=== PATIENT | male | born 1960 | race African-American/Black ===

== ENCOUNTER 2019-09-10 10:26 | Inpatient (IN) | payer BC ==
[2019-09-10 10:42] VITALS: BMI 29.4
--- NOTE | 2019-09-10 11:17 | HP ---
COWS - Scale Resting Pulse: 2= [place] 101-120 Sweatin= Chills/Flushing Restless Observation: 1= Difficult to Sit Still Pupil Size: 1= Pupils >than Normal Bone or Joint Aches: 4=Acute Joint/Muscle Pain Runny Nose/ Eye Tearin= Nasal Congestion GI Upset > 30mins: 1= Stomach Cramp Tremor Observation: 1= Tremor [place], Not Seen Yawning Observation: 0= None Anxiety or Irritability: 1=Feels Anxious/Irritable Goose Flesh Skin: 0=Smooth Skin COWS Score: 13 CIWA Score - Admission Criteria OASAS Guidelines: Admission for Medically Managed Detox: Requires at least one of the followin. CIWA greater than 12 2. Seizures within the past 24 hours 3. Delirium tremens within the past 24 hours 4. Hallucinations within the past 24 hours 5. Acute intervention needed for co occurring medical disorder 6. Acute intervention needed for co occurring psychiatric disorder 7. Severe withdrawal that cannot be handled at a lower level of care (continued vomiting, continued diarrhea, abnormal vital signs) requiring intravenous medication and/or fluids 8. Admitting History and Physical - Admission Chief Complaint: "I want help and I want to help myself. I want to start the new year in a better position thatn I am in now." History of Present Illness: 58 year old male with history of opioid dependence with withdrawals and cocaine use disorder. He has never overdosed. He is using 5-6 bags of heroin daily, intransally, last used this AM He is using $100 daily, intranasally, last used yesterday. He does occasionally use marijuana, last smoked 2 drags yesterday. He also endorses using oral opioid pills when he can get them. He smokes ciggarettes sporadically. PMH: HTN on no meds Psur herniorrhaphies, inguinal. Psych: in [facility] due to hallucinations. Last time that occurred was in 2018. Not on any meds. No friends. He resides in [place]. He lives alone He denies any legal issues currently. He is currently though on probation due to drug possession. History Source: Patient Limitations to Obtaining History: No Limitations - Past Medical History Cardiovascular: Yes: HTN - Past Surgical History Additional Past Surgical History: Herniorrhaphies Inguinal B/L - Advance Directives Advance Directives: No: Living Will, Health Care Proxy, DNR - Smoking History Smoking history: Current some day smoker Have you smoked in the past 12 months: Yes Aproximately how many cigarettes per day: 5 (not daily) - Alcohol/Substance Use Hx Alcohol Use: No History of Substance Use: reports: Cocaine, Heroin, Marijuana Date of Last Use: 09/09/19 - Social History Usual Living Arrangement: Yes: Alone Do you think of yourself as: Straight/Heterosexual ADL: Independent 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 History of Recent Travel: No Admission ROS [facility] - [facility] Allergies/Adverse Reactions: Allergies Allergy/AdvReac Type Severity Reaction Status Date / Time No Known Allergies Allergy Verified 09/10/19 10:38 Exam Limitations: No Limitations - Ebola screening Have you traveled outside of the country in the last 21 days: No Have you had contact with anyone from an Ebola affected area: No Have you been sick,other than usual withdrawal symptoms: No Do you have a fever: No - Review of Systems Constitutional: Chills EENT: reports: No Symptoms Reported Respiratory: reports: No Symptoms reported Cardiac: reports: No Symptoms Reported GI: reports: Nausea, Abdominal cramping : reports: No Symptoms Reported Musculoskeletal: reports: Back Pain, Muscle Pain Integumentary: reports: No Symptoms Reported Neuro: reports: No Symptoms reported Endocrine: reports: No Symptoms Reported Hematology: reports: No Symptoms Reported Psychiatric: reports: Judgement Intact, Mood/Affect Appropiate, Orientated x3, Anxious Other Systems: Reviewed and Negative Patient History - Patient Medical History Hx Anemia: No Hx Asthma: No Hx Chronic Obstructive Pulmonary Disease (COPD): No Hx Cancer: No Hx Cardiac Disorders: No Hx Congestive Heart Failure: No Hx Hypertension: Yes Hx Hypercholesterolemia: No Hx Pacemaker: No HX Cerebrovascular Accident: No Hx Seizures: No Hx Dementia: No Hx Diabetes: No Hx Gastrointestinal Disorders: No Hx Liver Disease: No Hx Genitourinary Disorders: No Hx Sexually Transmitted Disorders: No Hx Renal Disease (ESRD): No Hx Thyroid Disease: No Hx Human Immunodeficiency Virus (HIV): No Hx Hepatitis C: No Hx Depression: No Hx Suicide Attempt: No Hx Bipolar Disorder: No - Patient Surgical History Past Surgical History: Yes Other Surgical History: bilateral Herniorrhaphies - PPD History Previous Implant?: Yes Documented Results: Negative w/o proof Implanted On Prior R Admission?: No Results: negative PPD to be Administered?: Yes - Smoking Cessation Smoking history: Current some day smoker Have you smoked in the past 12 months: Yes Aproximately how many cigarettes per day: 5 Hx Chewing Tobacco Use: No Initiated information on smoking cessation: Yes 'Breaking Loose' booklet given: 09/10/19 - Substances abused Heroin Substance route: Inhalation Frequency: Daily Amount used: 5 BAGS Age of first use: 51 Date of last use: 09/09/19 Cocaine Substance route: Smoking Frequency: Daily Amount used: $100 Age of first use: 29 Date of last use: 09/09/19 Admission Physical Exam [facility] - Vital Signs Vital Signs: Vital Signs - 24 hr 09/10/19 10:35 Temperature 99.1 F Pulse Rate 104 H Respiratory 18 Rate Blood Pressure 98/66 - Physical General Appearance: Yes: Mild Distress, Tremorous, Irritable, Sweating, Anxious HEENTM: Yes: EOMI, Hearing grossly Normal, Normal ENT Inspection, Normocephalic , Normal Voice, ALINA, Pharynx Normal, Tm's normal Respiratory: Yes: Chest Non-Tender, Lungs Clear, Normal Breath Sounds, No Respiratory Distress, No Accessory Muscle Use Neck: Yes: No masses,lesions,Nodules, Supple, Trachea in good position Breast: Yes: Within Normal Limits Cardiology: Yes: Regular Rhythm, Regular Rate, S1, S2, Murmur Abdominal: Yes: Normal Bowel Sounds, Non Tender, Soft, Protuberent Genitourinary: Yes: Within Normal Limits Back: Yes: Normal Inspection Musculoskeletal: Yes: full range of Motion, Gait Steady, Pelvis Stable Extremities: Yes: Normal Capillary Refill, Normal Inspection, Normal Range of Motion, Non-Tender, Other (varicose veins) Neurological: Yes: director process II-XII NML intact, Fully Oriented, Alert, Motor Strength 5/5, Normal Mood/Affect, Normal Response Integumentary: Yes: Normal Color, Warm Lymphatic: Yes: Within Normal Limits - Diagnostic (1) Opioid dependence with withdrawal Current Visit: Yes Status: Acute Cleared for Admission [facility] - Detox or Rehab [facility] Level of Care: Medically Managed Detox Regimen/Protocol: Methadone Screened but not Admitted - Documentation of Visit Screened but not Admitted: No Breathalyzer - Breathalyzer Breathalyzer: 0 Urine Drug Screen - Test Device Lot number: [id number] Expiration date: 04/16/21 - Control Is test valid?: Yes - Results Drug screen NEGATIVE: No Urine drug screen results: THC-Marijuana, ANH-Cocaine, MOP-Opiates, BZO- Benzodiazepines Inpatient Rehab Admission - Rehab Decision to Admit Inpatient rehab admission?: No
[2019-09-10] MEDS ORDERED: BISMUTH SUBSALICYLATE 524 MG/30 ML UD PO PRN (11:30)
[2019-09-10] MEDS ORDERED: MAGNESIUM CITRATE 300 ML BOTTLE PO PRN (11:30)
[2019-09-10] MEDS ORDERED: ACETAMINOPHEN 325 MG TABLET (FP) PO PRN ×2 (11:30)
[2019-09-10] MEDS ORDERED: MAG HYDROX/AL HYDROX/SIMETH 30 ML UNIT-DOSE CUP PO PRN (11:30)
[2019-09-10] MEDS ORDERED: METHOCARBAMOL 500 MG TABLET PO PRN (11:30)
[2019-09-10] MEDS ORDERED: hydrOXYzine PAMOATE 25 MG CAPSULE (FP) PO PRN (11:30)
[2019-09-10] MEDS ORDERED: IBUPROFEN 400 MG TABLET (FP) PO PRN (11:30)
[2019-09-10] MEDS ORDERED: MAGNESIUM HYDROX 2400MG/30ML ORAL SUSPENSION 30 ML CUP PO PRN (11:30)
[2019-09-10] MEDS ORDERED: MENTHOL/PHENOL 1 EACH UD MM PRN (11:30)
--- NOTE | 2019-09-10 12:35 | EKG ---
Test Reason : Blood Pressure : / mmHG Vent. Rate : 078 BPM Atrial Rate : 078 BPM P-R Int : 144 ms QRS Dur : 102 ms QT Int : 406 ms P-R-T Axes : 065 -52 -27 degrees QTc Int : 462 ms NORMAL SINUS RHYTHM LEFT ANTERIOR FASCICULAR BLOCK MODERATE VOLTAGE CRITERIA FOR LVH, MAY BE NORMAL VARIANT CANNOT RULE OUT SEPTAL INFARCT , AGE UNDETERMINED ABNORMAL ECG NO PREVIOUS ECGS AVAILABLE Confirmed by Jonnie Pascual ([id number]) on 09/10/2019 12:34:46 PM Referred By: Confirmed By:Jonnie Pascual
[2019-09-10] MEDS ORDERED: METHADONE HCL 10 MG TABLET (FOR DETOX USE ONLY) PO ONE (13:00)
[2019-09-10] MEDS: THIAMINE HCL 100 MG TABLET (FP) PO SCH (22:15)
[2019-09-10] MEDS: MINERAL OIL/PETROLAT/WATER TOPICAL CREAM 454 GM JAR TP PRN (22:16)
[2019-09-10] MEDS: MELATONIN 5 MG TABLETS PO PRN (22:16)
[2019-09-11] MEDS ORDERED: METHADONE HCL 10 MG TABLET (FOR DETOX USE ONLY) ONE (09:20)
[2019-09-11] MEDS ORDERED: METHADONE HCL 5 MG TABLET (FOR DETOX USE ONLY) ONE (09:20)
--- NOTE | 2019-09-11 09:51 | PN ---
BHS COWS - Scale Resting Pulse: 0= [place] 80 or Below Sweatin= Chills/Flushing Restless Observation: 1= Difficult to Sit Still Pupil Size: 0= Normal to Room Light Bone or Joint Aches: 2= Severe Diffuse Aches Runny Nose/ Eye Tearin= Runny Nose/Eyes GI Upset > 30mins: 0= None Tremor Observation of Outstretched Hands: 1= Tremor [place], Not Seen Yawning Observation: 1= 1-2x During Session Anxiety or Irritability: 2=Irritable/Anxious Goose Flesh Skin: 0=Smooth Skin COWS Score: 10 BHS Progress Note (SOAP) Subjective: sweats shakes interrupted sleep body aches tired Objective: 09/11/19 09:51 Vital Signs Temperature 97.9 F 09/11/19 09:14 Pulse Rate 79 09/11/19 09:14 Respiratory Rate 18 09/11/19 09:14 Blood Pressure 143/91 09/11/19 09:14 O2 Sat by Pulse Oximetry (%) labs pending aaox3 ambulating no acute distress Assessment: 09/11/19 09:52 withdrawals Plan: continue detox pending labs
[2019-09-11] MEDS ORDERED: METHADONE (DETOX) 20 MG, METHADONE (DETOX) 5 MG PO ONE (10:00)
[2019-09-11] MEDS: NICOTINE 7 MG/24 HOURS TOPICAL PATCH TD SCH (10:13)
[2019-09-11] MEDS: cloNIDine HCL 0.1 MG TABLET PO PRN (10:13)
[2019-09-11] MEDS: PRENATAL VITAMINS W/ FOLIC ACID TABLET (FP) PO SCH (10:13)
[2019-09-11 11:05] LABS: HEMATOCRIT 38.1 % (35.4-49); HEMOGLOBIN 12.9 GM/dL (11.7-16.9); MCH 30.4 pg (25.7-33.7); MCHC 33.7 g/dl (32.0-35.9); MEAN CELL VOLUME 90.3 fl (80-96); MEAN PLT VOLUME 8.4 fl (7.5-11.1); PLATELET COUNT 222 K/MM3 (134-434); RBC 4.22 M/mm3 (4.00-5.60); RDW 13.5 % (11.9-15.9); WHITE BLOOD COUNT 6.5 K/mm3 (4.0-10.0)
[2019-09-11 11:06] LABS: ALBUMIN 3.2 g/dl (3.4-5.0); BILIRUBIN,TOTAL 0.3 mg/dL (0.2-1); BLOOD UREA NITROGEN 14.4 mg/dL (7-18); CALCIUM 8.7 mg/dL (8.5-10.1); CREATININE 1.1 mg/dL (0.55-1.3); POTASSIUM 3.8 mmol/L (3.5-5.1); TOT PROT 5.6 g/dl (6.4-8.2)
[2019-09-11] MEDS: THIAMINE HCL 100 MG TABLET (FP) PO SCH (22:18)
[2019-09-11] MEDS: MINERAL OIL/PETROLAT/WATER TOPICAL CREAM 454 GM JAR TP PRN (22:49)
[2019-09-12] MEDS ORDERED: METHADONE HCL 10 MG TABLET (FOR DETOX USE ONLY) PO ONE (10:00)
[2019-09-12] MEDS: NICOTINE 7 MG/24 HOURS TOPICAL PATCH TD SCH (10:27)
[2019-09-12] MEDS: PRENATAL VITAMINS W/ FOLIC ACID TABLET (FP) PO SCH (10:27)
--- NOTE | 2019-09-12 11:33 | PN ---
S COWS - Scale Resting Pulse: 0= [place] 80 or Below Sweatin= Beads of Sweat on Face Restless Observation: 1= Difficult to Sit Still Pupil Size: 0= Normal to Room Light Bone or Joint Aches: 2= Severe Diffuse Aches Runny Nose/ Eye Tearin= None GI Upset > 30mins: 0= None Tremor Observation of Outstretched Hands: 0= None Yawning Observation: 1= 1-2x During Session Anxiety or Irritability: 2=Irritable/Anxious Goose Flesh Skin: 0=Smooth Skin COWS Score: 9 S Progress Note (SOAP) Subjective: c/o anxiety, sweats, and muscle aches. Objective: 09/12/19 11:32 Vital Signs 09/12/19 09/12/19 06:31 09:10 Temperature 98.6 F 97.7 F Pulse Rate 64 77 Respiratory 20 18 Rate Blood Pressure 142/81 121/72 Laboratory Last Values WBC 6.5 K/mm3 (4.0-10.0) 09/11/19 07:50 RBC 4.22 M/mm3 (4.00-5.60) 09/11/19 07:50 Hgb 12.9 GM/dL (11.7-16.9) 09/11/19 07:50 Hct 38.1 % (35.4-49) 09/11/19 07:50 MCV 90.3 fl (80-96) 09/11/19 07:50 MCH 30.4 pg (25.7-33.7) 09/11/19 07:50 MCHC 33.7 g/dl (32.0-35.9) 09/11/19 07:50 RDW 13.5 % (11.9-15.9) 09/11/19 07:50 Plt Count 222 K/MM3 (134-434) 09/11/19 07:50 MPV 8.4 fl (7.5-11.1) 09/11/19 07:50 Sodium 136 mmol/L (136-145) 09/11/19 07:50 Potassium 3.8 mmol/L (3.5-5.1) 09/11/19 07:50 Chloride 101 mmol/L (98-107) 09/11/19 07:50 Carbon Dioxide 30 mmol/L (21-32) 09/11/19 07:50 Anion Gap 5 MMOL/L (8-16) L 09/11/19 07:50 BUN 14.4 mg/dL (7-18) 09/11/19 07:50 Creatinine 1.1 mg/dL (0.55-1.3) 09/11/19 07:50 Est GFR (CKD-EPI)AfAm 84.71 09/11/19 07:50 Est GFR (CKD-EPI)NonAf 73.09 09/11/19 07:50 Random Glucose 87 mg/dL (74-106) 09/11/19 07:50 Calcium 8.7 mg/dL (8.5-10.1) 09/11/19 07:50 Total Bilirubin 0.3 mg/dL (0.2-1) 09/11/19 07:50 AST 13 U/L (15-37) L 09/11/19 07:50 ALT 20 U/L (13-61) 09/11/19 07:50 Alkaline Phosphatase 57 U/L (45-117) 09/11/19 07:50 Total Protein 5.6 g/dl (6.4-8.2) L 09/11/19 07:50 Albumin 3.2 g/dl (3.4-5.0) L 09/11/19 07:50 RPR Titer Nonreactive (NONREACTIVE) 09/11/19 07:50 Labs noted. Assessment: 09/12/19 11:33 AOX3, in no respiratory distress. Full ROM, ambulating in the unit. Mild Withdrawal symptoms. Plan: continue detox.
[2019-09-12] MEDS: cloNIDine HCL 0.1 MG TABLET PO PRN (22:16)
[2019-09-12] MEDS: MELATONIN 5 MG TABLETS PO PRN (22:16)
[2019-09-12] MEDS: THIAMINE HCL 100 MG TABLET (FP) PO SCH (22:16)
[2019-09-12] MEDS: MINERAL OIL/PETROLAT/WATER TOPICAL CREAM 454 GM JAR TP PRN (22:17)
[2019-09-13] MEDS ORDERED: METHADONE HCL 10 MG TABLET (FOR DETOX USE ONLY) ONE (09:08)
[2019-09-13] MEDS ORDERED: METHADONE HCL 5 MG TABLET (FOR DETOX USE ONLY) ONE (09:08)
--- NOTE | 2019-09-13 09:18 | PN ---
BHS COWS - Scale Resting Pulse: 0= [place] 80 or Below Sweatin= Chills/Flushing Restless Observation: 1= Difficult to Sit Still Pupil Size: 0= Normal to Room Light Bone or Joint Aches: 1= Mild Discomfort Runny Nose/ Eye Tearin= Nasal Congestion GI Upset > 30mins: 0= None Tremor Observation of Outstretched Hands: 1= Tremor [place], Not Seen Yawning Observation: 1= 1-2x During Session Anxiety or Irritability: 1=Feels Anxious/Irritable Goose Flesh Skin: 0=Smooth Skin COWS Score: 7 BHS Progress Note (SOAP) Subjective: irritable agitation interrupted sleep Objective: 09/13/19 09:18 Vital Signs Temperature 97.9 F 09/13/19 09:10 Pulse Rate 71 09/13/19 09:10 Respiratory Rate 16 09/13/19 09:10 Blood Pressure 145/73 09/13/19 09:10 O2 Sat by Pulse Oximetry (%) Laboratory Tests 09/11/19 09/11/19 09/11/19 07:50 07:50 07:50 WBC 6.5 RBC 4.22 Hgb 12.9 Hct 38.1 MCV 90.3 MCH 30.4 MCHC 33.7 RDW 13.5 Plt Count 222 MPV 8.4 Sodium 136 Potassium 3.8 Chloride 101 Carbon Dioxide 30 Anion Gap 5 L BUN 14.4 Creatinine 1.1 Est GFR (CKD-EPI)AfAm 84.71 Est GFR (CKD-EPI)NonAf 73.09 Random Glucose 87 Calcium 8.7 Total Bilirubin 0.3 AST 13 L ALT 20 Alkaline Phosphatase 57 Total Protein 5.6 L Albumin 3.2 L RPR Titer Nonreactive aaox3 ambulating no acute distress Assessment: 09/13/19 09:18 withdrawals Plan: continue detox
[2019-09-13] MEDS ORDERED: METHADONE (DETOX) 10 MG, METHADONE (DETOX) 5 MG PO ONE (10:00)
[2019-09-13] MEDS: NICOTINE 7 MG/24 HOURS TOPICAL PATCH TD SCH (10:13)
[2019-09-13] MEDS: PRENATAL VITAMINS W/ FOLIC ACID TABLET (FP) PO SCH (10:13)
[2019-09-13] MEDS: THIAMINE HCL 100 MG TABLET (FP) PO SCH (21:08)
[2019-09-13] MEDS: MELATONIN 5 MG TABLETS PO PRN (21:08)
[2019-09-14] MEDS ORDERED: METHADONE HCL 10 MG TABLET (FOR DETOX USE ONLY) PO ONE (10:00)
[2019-09-14] MEDS: NICOTINE 7 MG/24 HOURS TOPICAL PATCH TD SCH (10:10)
[2019-09-14] MEDS: PRENATAL VITAMINS W/ FOLIC ACID TABLET (FP) PO SCH (10:10)
--- NOTE | 2019-09-14 13:38 | PN ---
BHS COWS - Scale Resting Pulse: 0= [place] 80 or Below Sweatin= No chills or Flushing Restless Observation: 1= Difficult to Sit Still Pupil Size: 0= Normal to Room Light Bone or Joint Aches: 0= None Runny Nose/ Eye Tearin= None GI Upset > 30mins: 0= None Tremor Observation of Outstretched Hands: 0= None Yawning Observation: 0= None Anxiety or Irritability: 0= None Goose Flesh Skin: 0=Smooth Skin COWS Score: 1 BHS Progress Note (SOAP) Subjective: Patient denies current Withdrawal / Detox symptoms and reports that he feels well overall at this time. Objective: PATIENT A & O X 3, OBSERVED AMBULATING ON DETOX UNIT UNASSISTED. IN NO ACUTE DISTRESS. 09/14/19 13:37 Vital Signs Temperature 97.5 F L 09/14/19 13:17 Pulse Rate 69 09/14/19 13:17 Respiratory Rate 16 09/14/19 13:17 Blood Pressure 142/81 09/14/19 13:17 O2 Sat by Pulse Oximetry (%) Laboratory Tests 09/11/19 09/11/19 09/11/19 07:50 07:50 07:50 WBC 6.5 RBC 4.22 Hgb 12.9 Hct 38.1 MCV 90.3 MCH 30.4 MCHC 33.7 RDW 13.5 Plt Count 222 MPV 8.4 Sodium 136 Potassium 3.8 Chloride 101 Carbon Dioxide 30 Anion Gap 5 L BUN 14.4 Creatinine 1.1 Est GFR (CKD-EPI)AfAm 84.71 Est GFR (CKD-EPI)NonAf 73.09 Random Glucose 87 Calcium 8.7 Total Bilirubin 0.3 AST 13 L ALT 20 Alkaline Phosphatase 57 Total Protein 5.6 L Albumin 3.2 L RPR Titer Nonreactive LABS NOTED. Assessment: 09/14/19 13:38 WITHDRAWAL SYMPTOMS. Plan: CONTINUE DETOX. PATIENT SCHEDULED FOR D/C FROM DETOX UNIT TOMORROW.
[2019-09-14] MEDS: THIAMINE HCL 100 MG TABLET (FP) PO SCH (22:11)
[2019-09-14] MEDS: MELATONIN 5 MG TABLETS PO PRN (22:12)
[2019-09-15] MEDS ORDERED: METHADONE HCL 5 MG TABLET (FOR DETOX USE ONLY) PO ONE (06:00)
[2019-09-15 06:21] VITALS: BP 132/58; PULSE 63; TEMP 98
--- NOTE | 2019-09-15 16:57 | DS ---
[facility] Detox Discharge Summary Admission Date: 09/10/19 Discharge Date: 09/15/19 - History Present History: Cocaine Dependence, Opioid Dependence Additional Comments: Patient completed detox successfully and discharged safely. Instructed to follow up with PCP within 1-2 weeks. Pertinent Past History: HTN - Physical Exam Results Vital Signs: Vital Signs Temperature 98.0 F 09/15/19 06:20 Pulse Rate 63 09/15/19 06:20 Respiratory Rate 18 09/15/19 06:20 Blood Pressure 132/58 L 09/15/19 06:20 O2 Sat by Pulse Oximetry (%) Pertinent Admission Physical Exam Findings: Withdrawal sxs Laboratory Tests 09/11/19 09/11/19 09/11/19 07:50 07:50 07:50 WBC 6.5 RBC 4.22 Hgb 12.9 Hct 38.1 MCV 90.3 MCH 30.4 MCHC 33.7 RDW 13.5 Plt Count 222 MPV 8.4 Sodium 136 Potassium 3.8 Chloride 101 Carbon Dioxide 30 Anion Gap 5 L BUN 14.4 Creatinine 1.1 Est GFR (CKD-EPI)AfAm 84.71 Est GFR (CKD-EPI)NonAf 73.09 Random Glucose 87 Calcium 8.7 Total Bilirubin 0.3 AST 13 L ALT 20 Alkaline Phosphatase 57 Total Protein 5.6 L Albumin 3.2 L RPR Titer Nonreactive Labs reviewed - Treatment Hospital Course: Detox Protocol Followed, Detoxed Safely, Responded well, Discharged Condition Good - Medication Discharge Medications: Ambulatory Orders NK [No Known Home Medication] 09/10/19 - Diagnosis (1) Cocaine dependence Status: Acute (2) HTN (hypertension), benign Status: Chronic (3) Nicotine dependence Status: Chronic (4) Opioid dependence with withdrawal Status: Acute - AMA Did Patient Leave Against Medical Advice: No (Follow up with PCP within 1-2 weeks)
== END 2019-09-15 08:40 | disposition home or self-care (01) | DRG 773 ==
LOC: YASAS 10:26 → Y6N 11:59
PROVIDERS: ADMIT Allergy & Immunology; ATTEND Allergy & Immunology
PROC: HZ2ZZZZ Detoxification Services for Substance Abuse Treatment (ICD-10-PCS; principal; 2019-09-10)
DX: F11.23 Opioid dependence with withdrawal (principal); F14.20 Cocaine dependence, uncomplicated; F17.210 Nicotine dependence, cigarettes, uncomplicated; I10 Essential (primary) hypertension; R01.1 Cardiac murmur, unspecified
CPT/HCPCS: 36415; 80053; 85027; 86593; 93005; 93010; J0735

== ENCOUNTER 2019-10-04 13:58 | Inpatient (IN) | payer BC ==
[2019-10-04 16:44] VITALS: BMI 29.8
--- NOTE | 2019-10-04 17:58 | HP ---
COWS - Scale Resting Pulse: 0= [place] 80 or Below Sweatin= Chills/Flushing Restless Observation: 0= Sits Still Pupil Size: 0= Normal to Room Light Bone or Joint Aches: 1= Mild Discomfort Runny Nose/ Eye Tearin= None GI Upset > 30mins: 2= Nausea/Diarrhea Tremor Observation: 0= None Yawning Observation: 1= 1-2x During Session Anxiety or Irritability: 1=Feels Anxious/Irritable Goose Flesh Skin: 0=Smooth Skin COWS Score: 6 CIWA Score - Admission Criteria OASAS Guidelines: Admission for Medically Managed Detox: Requires at least one of the followin. CIWA greater than 12 2. Seizures within the past 24 hours 3. Delirium tremens within the past 24 hours 4. Hallucinations within the past 24 hours 5. Acute intervention needed for co occurring medical disorder 6. Acute intervention needed for co occurring psychiatric disorder 7. Severe withdrawal that cannot be handled at a lower level of care (continued vomiting, continued diarrhea, abnormal vital signs) requiring intravenous medication and/or fluids 8. Admitting History and Physical - Admission Chief Complaint: here for detox from heroin History of Present Illness: 58 yo M Hx of HTN, bipolar , polysubstance use presents to [facility] for detox from heroin and crack cocaine. pt denies hx of overdose Heroin : 10 bags daily x 5 years , last used today 1130 am Crack cocaine : $200-300 daily x 5 years last used 7 am today 5-6 cigarettes daily Lives in house in [place], has family/ friends support. 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 History of Recent Travel: No Admission ROS [facility] - HPI Chief Complaint: here for detox from crack cocaine and heroin Allergies/Adverse Reactions: Allergies Allergy/AdvReac Type Severity Reaction Status Date / Time No Known Allergies Allergy Verified 10/04/19 16:40 - Ebola screening Have you traveled outside of the country in the last 21 days: No Have you had contact with anyone from an Ebola affected area: No Do you have a fever: No Patient History - Patient Medical History Hx Anemia: No Hx Asthma: No Hx Chronic Obstructive Pulmonary Disease (COPD): No Hx Cancer: No Hx Cardiac Disorders: No Hx Congestive Heart Failure: No Hx Hypertension: Yes Hx Hypercholesterolemia: No Hx Pacemaker: No HX Cerebrovascular Accident: No Hx Seizures: No Hx Dementia: No Hx Diabetes: No Hx Gastrointestinal Disorders: No Hx Liver Disease: No Hx Genitourinary Disorders: No Hx Sexually Transmitted Disorders: No Hx Renal Disease (ESRD): No Hx Thyroid Disease: No Hx Human Immunodeficiency Virus (HIV): No Hx Hepatitis C: No Hx Depression: Yes Hx Suicide Attempt: No Hx Bipolar Disorder: No Hx Schizophrenia: No - Patient Surgical History Past Surgical History: Yes Hx Neurologic Surgery: No Hx Cataract Extraction: No Hx Cardiac Surgery: No Hx Lung Surgery: No Hx Breast Surgery: No Hx Breast Biopsy: No Hx Abdominal Surgery: No Hx Appendectomy: No Hx Cholecystectomy: No Hx Genitourinary Surgery: No Hx Section: No Hx Orthopedic Surgery: No Other Surgical History: bilateral Herniorrhaphies Anesthesia Reaction: Yes - PPD History Date: 09/12/19 Results: negative - Smoking Cessation Smoking history: Current some day smoker Have you smoked in the past 12 months: Yes Aproximately how many cigarettes per day: 5 Hx Chewing Tobacco Use: No Initiated information on smoking cessation: Yes 'Breaking Loose' booklet given: 10/04/19 - Substances abused Heroin Substance route: Inhalation Frequency: Daily Amount used: 10bags Age of first use: 23 Date of last use: 10/04/19 Crack Substance route: Smoking Frequency: 3-6 times per week Amount used: $200 Age of first use: 24 Date of last use: 10/03/19 Admission Physical Exam BHS - Vital Signs Vital Signs: Vital Signs - 24 hr 10/04/19 16:40 Temperature 97.7 F Pulse Rate 75 Respiratory 20 Rate Blood Pressure 153/87 - Physical General Appearance: Yes: No Apparent Distress, Nourished HEENTM: Yes: EOMI, Hearing grossly Normal, Normal Voice, ALINA Respiratory: Yes: Lungs Clear, Normal Breath Sounds, No Accessory Muscle Use. No: Crackles, Wheezing Neck: Yes: No masses,lesions,Nodules Cardiology: Yes: Within Normal Limits, Regular Rhythm, Regular Rate, S1, S2. No : Edema, JVD, Murmur Abdominal: Yes: Normal Bowel Sounds, Non Tender, Soft. No: Distended Back: No: CVA Tenderness Extremities: Yes: Other (varicose veins b/l). 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 intact, Fully Oriented Integumentary: Yes: Normal Color, Dry, Warm - Diagnostic (1) Heroin abuse Status: Deleted (2) Heroin addiction Status: Deleted (3) Cocaine dependence Status: Acute Qualifiers: Substance use status: uncomplicated Qualified Code(s): F14.20 - Cocaine dependence, uncomplicated (4) HTN (hypertension), benign Status: Chronic (5) Nicotine dependence Status: Chronic Qualifiers: Nicotine product type: cigarettes Substance use status: uncomplicated Qualified Code(s): F17.210 - Nicotine dependence, cigarettes, uncomplicated Breathalyzer - Breathalyzer Breathalyzer: 0 Urine Drug Screen - Test Device Lot number: [id number] Expiration date: 04/17/21 - Control Is test valid?: Yes - Results Drug screen NEGATIVE: No Urine drug screen results: THC-Marijuana, ANH-Cocaine, FEN-Fentanyl, MOP-Opiates Inpatient Rehab Admission - Rehab Decision to Admit Inpatient rehab admission?: No
[2019-10-04] MEDS ORDERED: hydrOXYzine PAMOATE 25 MG CAPSULE (FP) PO PRN (18:26)
[2019-10-04] MEDS ORDERED: MAGNESIUM CITRATE 300 ML BOTTLE PO PRN (18:26)
[2019-10-04] MEDS ORDERED: MAG HYDROX/AL HYDROX/SIMETH 30 ML UNIT-DOSE CUP PO PRN (18:26)
[2019-10-04] MEDS ORDERED: IBUPROFEN 400 MG TABLET (FP) PO PRN (18:26)
[2019-10-04] MEDS ORDERED: METHOCARBAMOL 500 MG TABLET PO PRN (18:26)
[2019-10-04] MEDS ORDERED: MENTHOL/PHENOL 1 EACH UD MM PRN (18:26)
[2019-10-04] MEDS ORDERED: ACETAMINOPHEN 325 MG TABLET (FP) PO PRN ×2 (18:26)
[2019-10-04] MEDS ORDERED: MAGNESIUM HYDROX 2400MG/30ML ORAL SUSPENSION 30 ML CUP PO PRN (18:26)
[2019-10-04] MEDS ORDERED: BISMUTH SUBSALICYLATE 524 MG/30 ML UD PO PRN (18:26)
--- NOTE | 2019-10-04 18:55 | PN ---
Teaching Attending Note Name of Resident: Danii Irwin ATTENDING PHYSICIAN STATEMENT I saw and evaluated the patient. I reviewed the resident's note and discussed the case with the resident. I agree with the resident's findings and plan as documented. SUBJECTIVE: 58 yo M here requesting detox from heroin and crack cocaine. pt denies hx of overdose PHx HTN, bipolar d/o , Heroin : 10 bags daily x 5 years , last used today 1130 am Crack cocaine : $200-300 daily x 5 years last used 7 am today tobacco : 5-6 cigarettes daily PSH: 2 inguinal hernia surgeries in 1980s ALLERGIES: NKDA Meds: None OBJECTIVE: wnwd , irritable Vital Signs - 24 hr 10/04/19 16:40 Temperature 97.7 F Pulse Rate 75 Respiratory 20 Rate Blood Pressure 153/87 ASSESSMENT AND PLAN: OUD w/ intoxication
[2019-10-04] MEDS: cloNIDine HCL 0.1 MG TABLET PO PRN (19:03)
[2019-10-04] MEDS: THIAMINE HCL 100 MG TABLET (FP) PO SCH (22:09)
[2019-10-04] MEDS: MELATONIN 5 MG TABLETS PO PRN (22:10)
[2019-10-05] MEDS: NICOTINE 7 MG/24 HOURS TOPICAL PATCH TD SCH (10:14)
[2019-10-05] MEDS: PRENATAL VITAMINS W/ FOLIC ACID TABLET (FP) PO SCH (10:14)
[2019-10-05] MEDS ORDERED: METHADONE HCL 10 MG TABLET (FOR DETOX USE ONLY) PO ONE (10:30)
--- NOTE | 2019-10-05 14:24 | PN ---
BHS COWS - Scale Resting Pulse: 0= [place] 80 or Below Sweatin= Chills/Flushing Restless Observation: 1= Difficult to Sit Still Pupil Size: 0= Normal to Room Light Bone or Joint Aches: 2= Severe Diffuse Aches Runny Nose/ Eye Tearin= None GI Upset > 30mins: 0= None Tremor Observation of Outstretched Hands: 0= None Yawning Observation: 1= 1-2x During Session Anxiety or Irritability: 2=Irritable/Anxious Goose Flesh Skin: 0=Smooth Skin COWS Score: 7 BHS Progress Note (SOAP) Subjective: Anxious, Body Aches, Fatigue, Sweating. Objective: PATIENT A & O X 3. IN NO ACUTE DISTRESS. 10/05/19 14:25 Vital Signs Temperature 97.9 F 10/05/19 09:15 Pulse Rate 75 10/05/19 09:15 Respiratory Rate 16 10/05/19 09:15 Blood Pressure 142/66 10/05/19 09:15 O2 Sat by Pulse Oximetry (%) RESULTS OF LABS DRAWN FROM ADMISSION ON 09/11/2019 NOTED. 10/05/19 14:26 Assessment: 10/05/19 14:26 WITHDRAWAL SYMPTOMS. HYPERTENSION. 10/05/19 14:28 Plan: CONTINUE DETOX. CONTINUE MONITOR BLOOD PRESSURE. AMLODIPINE, 5 MG DAILY ORDERED FOR ELEVATED BLOOD PRESSURE. (HISTORY OF HYPERTENSION NOTED BY PATIENT ON DETOX ADMISSION REPORT; HOWEVER, NO ANTI-HYPERTENSIVE MEDICATIONS NOTED IN HOME MEDICATION LIST) .
[2019-10-05] MEDS: amLODIPine BESYLATE 5 MG TABLET (FP) PO SCH (15:10)
[2019-10-05] MEDS: MELATONIN 5 MG TABLETS PO PRN (22:10)
[2019-10-05] MEDS: THIAMINE HCL 100 MG TABLET (FP) PO SCH (22:10)
--- NOTE | 2019-10-06 08:57 | CONSULT ---
[facility] Psychiatric Consult - Data Date of interview: 10/06/19 Admission source: [facility] Identifying data: Patient is a 58 year old single male, father of one, unemployed, domiciled, and is supported by [facility]. THis is one of multiple admissions for patient. Patient admitted to for opiate dependence. Substance Abuse History: - Smoking Cessation. Smoking history: Current some day smoker. Have you smoked in the past 12 months: Yes. Aproximately how many cigarettes per day: 5. Hx Chewing Tobacco Use: No. - Substances abused. Heroin. Substance route: Inhalation. Frequency: Daily. Amount used: 10bags. Age of first use: 23. Date of last use: 10/04/19. Crack. Substance route: Smoking. Frequency: 3-6 times per week. Amount used: $200. Age of first use: 24. Date of last use: 10/03/19 Medical History: bilateral Herniorrhaphies, hypertension Psychiatric History: Patient denies history of psychiatric hospitalization and suicide attempt. Mr. Lin reports seeing a psychiatrist one time last year in [place], [place] to address his history of anxiety and insomnia. States that he was prescribed medications but is unable to recall the name of the medications. At present Mr. Lin reports difficulty sleeping. Physical/Sexual Abuse/Trauma History: denies. Mental Status Exam - Mental Status Exam Alert and Oriented to: Time, Place, Person Cognitive Function: Good Patient Appearance: Well Groomed Mood: Withdrawn Affect: Mood Congruent Patient Behavior: Fatigued Speech Pattern: Clear Voice Loudness: Normal Thought Process: Intact, Goal Oriented Thought Disorder: Not Present Hallucinations: Denies Suicidal Ideation: Denies Homicidal Ideation: Denies Insight/Judgement: Poor Sleep: Poorly Appetite: Fair Muscle strength/Tone: Normal Gait/Station: Normal Psychiatric Findings - Problem List ([place] 1, 2,3) (1) Substance induced mood disorder Current Visit: No Status: Chronic (2) Heroin abuse Current Visit: Yes Status: Acute (3) Cocaine dependence Current Visit: No Status: Acute (4) Opioid dependence with withdrawal Current Visit: No Status: Acute (5) Nicotine dependence Current Visit: No Status: Chronic (6) Substance-induced sleep disorder Current Visit: Yes Status: Acute - Initial Treatment Plan Initial Treatment Plan: Psychoeducation provided. Detoxification in progress. Will order Melatonin 10mg HS. Benefits and side effects discussed. Verbal consent given.
[2019-10-06] MEDS ORDERED: METHADONE HCL 10 MG TABLET (FOR DETOX USE ONLY) ONE (09:22)
[2019-10-06] MEDS ORDERED: METHADONE HCL 5 MG TABLET (FOR DETOX USE ONLY) ONE (09:22)
[2019-10-06] MEDS ORDERED: METHADONE (DETOX) 20 MG, METHADONE (DETOX) 5 MG PO ONE (10:00)
[2019-10-06] MEDS: PRENATAL VITAMINS W/ FOLIC ACID TABLET (FP) PO SCH (10:54)
[2019-10-06] MEDS: amLODIPine BESYLATE 5 MG TABLET (FP) PO SCH (10:54)
[2019-10-06] MEDS: NICOTINE 7 MG/24 HOURS TOPICAL PATCH TD SCH (10:54)
--- NOTE | 2019-10-06 12:46 | PN ---
[facility] COWS - Scale Resting Pulse: 0= [place] 80 or Below Sweatin= Chills/Flushing Restless Observation: 1= Difficult to Sit Still Pupil Size: 0= Normal to Room Light Bone or Joint Aches: 1= Mild Discomfort Runny Nose/ Eye Tearin= None GI Upset > 30mins: 0= None Tremor Observation of Outstretched Hands: 0= None Yawning Observation: 0= None Anxiety or Irritability: 0= None Goose Flesh Skin: 0=Smooth Skin COWS Score: 3 [facility] Progress Note (SOAP) Subjective: irritable sweats Objective: 10/06/19 12:46 Vital Signs Temperature 97.9 F 10/06/19 09:26 Pulse Rate 72 10/06/19 09:26 Respiratory Rate 18 10/06/19 09:26 Blood Pressure 150/95 10/06/19 09:26 O2 Sat by Pulse Oximetry (%) aaox3 ambulating no acute distress Assessment: 10/06/19 12:47 mild withdrawals Plan: continue detox
[2019-10-06] MEDS: THIAMINE HCL 100 MG TABLET (FP) PO SCH (22:13)
[2019-10-06] MEDS: MELATONIN 5 MG TABLETS PO PRN (22:14)
[2019-10-07] MEDS ORDERED: METHADONE HCL 10 MG TABLET (FOR DETOX USE ONLY) PO ONE (10:00)
--- NOTE | 2019-10-07 10:12 | PN ---
[facility] COWS - Scale Resting Pulse: 0= [place] 80 or Below Sweatin= Chills/Flushing Restless Observation: 1= Difficult to Sit Still Pupil Size: 0= Normal to Room Light Bone or Joint Aches: 1= Mild Discomfort Runny Nose/ Eye Tearin= Nasal Congestion GI Upset > 30mins: 2= Nausea/Diarrhea Tremor Observation of Outstretched Hands: 0= None Yawning Observation: 1= 1-2x During Session Anxiety or Irritability: 1=Feels Anxious/Irritable Goose Flesh Skin: 0=Smooth Skin COWS Score: 8 [facility] Progress Note (SOAP) Subjective: c/o of abdominal cramps, diarrhea, flatulence, interrupted sleep Objective: 10/07/19 10:10 Vital Signs Temperature 97.5 F L 10/07/19 09:42 Pulse Rate 69 10/07/19 09:42 Respiratory Rate 17 10/07/19 09:42 Blood Pressure 127/58 L 10/07/19 09:42 O2 Sat by Pulse Oximetry (%) Assessment: 10/07/19 12:00 Patient AOx3 no acute distress EENT WNL No abdominal tenderness withdrawal sx Plan: increase fluids continue detox continue to monitor
[2019-10-07] MEDS: PRENATAL VITAMINS W/ FOLIC ACID TABLET (FP) PO SCH (10:52)
[2019-10-07] MEDS: amLODIPine BESYLATE 5 MG TABLET (FP) PO SCH (10:52)
[2019-10-07] MEDS: NICOTINE 7 MG/24 HOURS TOPICAL PATCH TD SCH (10:53)
[2019-10-07] MEDS: THIAMINE HCL 100 MG TABLET (FP) PO SCH (21:18)
[2019-10-07] MEDS: MELATONIN 5 MG TABLETS PO PRN (21:18)
[2019-10-08] MEDS ORDERED: METHADONE HCL 5 MG TABLET (FOR DETOX USE ONLY) ONE (09:08)
[2019-10-08] MEDS ORDERED: METHADONE HCL 10 MG TABLET (FOR DETOX USE ONLY) ONE (09:09)
--- NOTE | 2019-10-08 09:32 | PN ---
[facility] COWS - Scale Resting Pulse: 1= [place] 81-100 Sweatin= Chills/Flushing Restless Observation: 1= Difficult to Sit Still Pupil Size: 0= Normal to Room Light Bone or Joint Aches: 2= Severe Diffuse Aches Runny Nose/ Eye Tearin= Nasal Congestion GI Upset > 30mins: 0= None Tremor Observation of Outstretched Hands: 0= None Yawning Observation: 0= None Anxiety or Irritability: 1=Feels Anxious/Irritable Goose Flesh Skin: 0=Smooth Skin COWS Score: 7 [facility] Progress Note (SOAP) Subjective: feeling better anxiety restless Objective: 10/08/19 09:32 Vital Signs Temperature 97.7 F 10/08/19 09:24 Pulse Rate 96 H 10/08/19 09:24 Respiratory Rate 20 10/08/19 09:24 Blood Pressure 138/73 10/08/19 09:24 O2 Sat by Pulse Oximetry (%) aaox3 ambulating no acute distress Assessment: 10/08/19 09:32 withdrawals Plan: continue detox
[2019-10-08] MEDS ORDERED: METHADONE (DETOX) 10 MG, METHADONE (DETOX) 5 MG PO ONE (10:00)
[2019-10-08] MEDS: amLODIPine BESYLATE 5 MG TABLET (FP) PO SCH (10:14)
[2019-10-08] MEDS: NICOTINE 7 MG/24 HOURS TOPICAL PATCH TD SCH (10:14)
[2019-10-08] MEDS: PRENATAL VITAMINS W/ FOLIC ACID TABLET (FP) PO SCH (10:15)
[2019-10-08] MEDS: cloNIDine HCL 0.1 MG TABLET PO PRN (22:13)
[2019-10-08] MEDS: THIAMINE HCL 100 MG TABLET (FP) PO SCH (22:13)
[2019-10-08] MEDS: MELATONIN 5 MG TABLETS PO PRN (22:14)
[2019-10-09] MEDS ORDERED: METHADONE HCL 10 MG TABLET (FOR DETOX USE ONLY) PO ONE (10:00)
[2019-10-09] MEDS: NICOTINE 7 MG/24 HOURS TOPICAL PATCH TD SCH (10:43)
[2019-10-09] MEDS: PRENATAL VITAMINS W/ FOLIC ACID TABLET (FP) PO SCH (10:43)
[2019-10-09] MEDS: amLODIPine BESYLATE 5 MG TABLET (FP) PO SCH (10:43)
--- NOTE | 2019-10-09 11:41 | PN ---
[facility] COWS - Scale Resting Pulse: 0= [place] 80 or Below Sweatin= No chills or Flushing Restless Observation: 1= Difficult to Sit Still Pupil Size: 0= Normal to Room Light Bone or Joint Aches: 1= Mild Discomfort Runny Nose/ Eye Tearin= None GI Upset > 30mins: 0= None Tremor Observation of Outstretched Hands: 0= None Yawning Observation: 1= 1-2x During Session Anxiety or Irritability: 1=Feels Anxious/Irritable Goose Flesh Skin: 0=Smooth Skin COWS Score: 4 [facility] Progress Note (SOAP) Subjective: insomnia melatonin not helping Objective: 10/09/19 11:39 Vital Signs Temperature 98.1 F 10/09/19 09:10 Pulse Rate 67 10/09/19 09:10 Respiratory Rate 18 10/09/19 09:10 Blood Pressure 139/75 10/09/19 09:10 O2 Sat by Pulse Oximetry (%) aaox3 ambulating no acute distress Assessment: 10/09/19 11:40 mild withdrawal sx Plan: trazadone 50mg x one tonight melatonin d/c d/c in am
[2019-10-09] MEDS ORDERED: CYCLOBENZAPRINE HCL 5 MG TABLET PO SCH (14:00)
[2019-10-09] MEDS: THIAMINE HCL 100 MG TABLET (FP) PO SCH (21:19)
[2019-10-09] MEDS ORDERED: traZODone HCL 50 MG TABLET (FP) PO ONE (22:00)
[2019-10-10] MEDS ORDERED: METHADONE HCL 5 MG TABLET (FOR DETOX USE ONLY) PO ONE (06:00)
[2019-10-10 06:26] VITALS: BP 144/94; PULSE 65; TEMP 97.5
--- NOTE | 2019-10-10 08:40 | DS ---
[facility] Detox Discharge Summary Admission Date: 10/04/19 Discharge Date: 10/10/19 - History Present History: Cocaine Dependence, Opioid Dependence - Physical Exam Results Vital Signs: Vital Signs Temperature 97.5 F L 10/10/19 06:25 Pulse Rate 65 10/10/19 06:25 Respiratory Rate 18 10/10/19 06:25 Blood Pressure 144/94 10/10/19 06:25 O2 Sat by Pulse Oximetry (%) Pertinent Admission Physical Exam Findings: Vital Signs Temperature 97.5 F L 10/10/19 06:25 Pulse Rate 65 10/10/19 06:25 Respiratory Rate 18 10/10/19 06:25 Blood Pressure 144/94 10/10/19 06:25 O2 Sat by Pulse Oximetry (%) aaox3 ambulating no acute distress - Treatment Hospital Course: Detox Protocol Followed, Detoxed Safely, Responded well, Discharged Condition Good, Rehab Referral Accepted - Medication Discharge Medications: Ambulatory Orders NK [No Known Home Medication] 09/10/19 - Diagnosis (1) Substance-induced sleep disorder Current Visit: Yes Status: Acute (2) HTN (hypertension), benign Current Visit: Yes Status: Chronic (3) Cocaine dependence Current Visit: No Status: Acute Qualifiers: Substance use status: uncomplicated Qualified Code(s): F14.20 - Cocaine dependence, uncomplicated (4) Opioid dependence with withdrawal Current Visit: Yes Status: Chronic (5) Nicotine dependence Current Visit: Yes Status: Chronic Qualifiers: Nicotine product type: cigarettes Substance use status: uncomplicated Qualified Code(s): F17.210 - Nicotine dependence, cigarettes, uncomplicated (6) Substance induced mood disorder Current Visit: No Status: Chronic - AMA Did Patient Leave Against Medical Advice: No
== END 2019-10-10 08:50 | disposition home or self-care (01) | DRG 773 ==
LOC: YASAS 13:58 → Y6N 18:38
PROVIDERS: ADMIT Allergy & Immunology; ATTEND Allergy & Immunology
PROC: HZ2ZZZZ Detoxification Services for Substance Abuse Treatment (ICD-10-PCS; principal; 2019-10-04)
DX: F11.23 Opioid dependence with withdrawal (principal); F14.20 Cocaine dependence, uncomplicated; F17.210 Nicotine dependence, cigarettes, uncomplicated; F19.282 Other psychoactive substance dependence with psychoactive substance-induced sleep disorder; F19.24 Other psychoactive substance dependence with psychoactive substance-induced mood disorder; F31.9 Bipolar disorder, unspecified; I10 Essential (primary) hypertension
CPT/HCPCS: J0735

== ENCOUNTER 2021-06-09 10:36 | Inpatient (IN) | payer BC ==
[2021-06-09 12:28] VITALS: BMI 23.9
[2021-06-09] MEDS ORDERED: ACETAMINOPHEN 325 MG TABLET (FP) PO PRN ×2 (17:40)
[2021-06-09] MEDS ORDERED: ONDANSETRON *ODT* 4 MG TABLET SL PRN (17:40)
[2021-06-09] MEDS ORDERED: MAGNESIUM HYDROX 2400MG/30ML ORAL SUSPENSION 30 ML CUP PO PRN (17:40)
[2021-06-09] MEDS ORDERED: MAG HYDROX/AL HYDROX/SIMETH 30 ML UNIT-DOSE CUP PO PRN (17:40)
[2021-06-09] MEDS ORDERED: MAGNESIUM CITRATE 300 ML BOTTLE PO PRN (17:40)
[2021-06-09] MEDS ORDERED: NICOTINE 10 MG CARTRIDGE (INHALER) IH PRN (17:40)
[2021-06-09] MEDS ORDERED: BISMUTH SUBSALICYLATE 524 MG/30 ML PO PRN (17:40)
[2021-06-09] MEDS ORDERED: clonazePAM 0.5 MG ODT TABLETS SL PRN (17:40)
[2021-06-09] MEDS ORDERED: METHOCARBAMOL 500 MG TABLET PO PRN (17:40)
[2021-06-09] MEDS ORDERED: IBUPROFEN 400 MG TABLET (FP) PO PRN (17:40)
[2021-06-09] MEDS ORDERED: methaDONE HCL 10 MG TABLET (FOR DETOX USE ONLY) PO ONE (17:40)
[2021-06-09] MEDS ORDERED: MENTHOL/PHENOL 1 EACH UD MM PRN (17:40)
[2021-06-09] MEDS ORDERED: cloNIDine HCL 0.1 MG TABLET PO PRN (17:40)
[2021-06-09] MEDS: hydrOXYzine PAMOATE 25 MG CAPSULE (FP) PO SCH ×2 (20:11→22:37)
[2021-06-09] MEDS: NICOTINE 7 MG/24 HOURS TOPICAL PATCH TD SCH (20:12)
[2021-06-09] MEDS: MELATONIN 5 MG TABLETS PO SCH (22:37)
[2021-06-09] MEDS: THIAMINE HCL 100 MG TABLET (FP) PO SCH (22:37)
[2021-06-10] MEDS: hydrOXYzine PAMOATE 25 MG CAPSULE (FP) PO SCH ×5 (06:13→23:06)
[2021-06-10] MEDS ORDERED: methaDONE HCL 10 MG TABLET (FOR DETOX USE ONLY) PO ONE (10:00)
[2021-06-10 10:59] LABS: HEMATOCRIT 43.6 % (35.4-49); HEMOGLOBIN 14.6 GM/dL (11.7-16.9); MCH 30.2 pg (25.7-33.7); MCHC 33.5 g/dl (32.0-35.9); MEAN CELL VOLUME 90.2 fl (80-96); MEAN PLT VOLUME 7.6 fl (7.5-11.1); PLATELET COUNT 356 10^3/uL (134-434); RBC 4.84 M/mm3 (4.00-5.60); RDW 14.3 % (11.9-15.9); WHITE BLOOD COUNT 7.8 K/mm3 (4.0-10.0)
[2021-06-10 11:04] LABS: CALCIUM 9.2 mg/dL (8.5-10.1)
[2021-06-10 11:05] LABS: ALBUMIN 3.5 g/dl (3.4-5.0); BLOOD UREA NITROGEN 11.4 mg/dL (7-18)
[2021-06-10 11:08] LABS: CREATININE 1.1 mg/dL (0.55-1.3)
[2021-06-10 11:09] LABS: BILIRUBIN,TOTAL 0.9 mg/dL (0.2-1)
[2021-06-10] MEDS: NICOTINE 7 MG/24 HOURS TOPICAL PATCH TD SCH (11:21)
[2021-06-10] MEDS: ENALAPRIL MALEATE 5 MG TABLET PO SCH (15:16)
[2021-06-10] MEDS: THIAMINE HCL 100 MG TABLET (FP) PO SCH (23:06)
[2021-06-10] MEDS: MELATONIN 5 MG TABLETS PO SCH (23:07)
[2021-06-11] MEDS: hydrOXYzine PAMOATE 25 MG CAPSULE (FP) PO SCH ×2 (08:25→10:35)
[2021-06-11] MEDS ORDERED: methaDONE HCL 10 MG TABLET (FOR DETOX USE ONLY) PO ONE ×2 (10:00)
[2021-06-11] MEDS: NICOTINE 7 MG/24 HOURS TOPICAL PATCH TD SCH (10:35)
[2021-06-11] MEDS: ENALAPRIL MALEATE 5 MG TABLET PO SCH (10:35)
[2021-06-11] MEDS: hydrOXYzine PAMOATE 25 MG CAPSULE (FP) PO PRN (22:33)
[2021-06-11] MEDS: MELATONIN 5 MG TABLETS PO SCH (22:33)
[2021-06-11] MEDS: THIAMINE HCL 100 MG TABLET (FP) PO SCH (22:33)
[2021-06-12] MEDS ORDERED: methaDONE HCL 10 MG TABLET (FOR DETOX USE ONLY) PO ONE (10:00)
[2021-06-12] MEDS: hydrOXYzine PAMOATE 25 MG CAPSULE (FP) PO PRN (10:47)
[2021-06-12] MEDS: NICOTINE 7 MG/24 HOURS TOPICAL PATCH TD SCH (10:49)
[2021-06-12] MEDS: ENALAPRIL MALEATE 5 MG TABLET PO SCH (14:43)
[2021-06-12] MEDS: THIAMINE HCL 100 MG TABLET (FP) PO SCH (23:37)
[2021-06-12] MEDS: MELATONIN 5 MG TABLETS PO SCH (23:37)
[2021-06-13] MEDS ORDERED: methaDONE HCL 10 MG TABLET (FOR DETOX USE ONLY) PO ONE ×3 (05:00→10:00)
[2021-06-13 10:16] VITALS: BP 111/68; PULSE 86; TEMP 96.8
[2021-06-13] MEDS: ENALAPRIL MALEATE 5 MG TABLET PO SCH (10:30)
[2021-06-13] MEDS: NICOTINE 7 MG/24 HOURS TOPICAL PATCH TD SCH (11:13)
== END 2021-06-13 12:20 | disposition home or self-care (01) | DRG 773 ==
LOC: YASAS 10:36 → Y3N 19:33
PROVIDERS: ADMIT Allergy & Immunology; ATTEND Allergy & Immunology
PROC: HZ2ZZZZ Detoxification Services for Substance Abuse Treatment (ICD-10-PCS; principal; 2021-06-09)
DX: F11.23 Opioid dependence with withdrawal (principal); F14.20 Cocaine dependence, uncomplicated; F12.20 Cannabis dependence, uncomplicated; F17.210 Nicotine dependence, cigarettes, uncomplicated; F19.282 Other psychoactive substance dependence with psychoactive substance-induced sleep disorder; F19.24 Other psychoactive substance dependence with psychoactive substance-induced mood disorder; I10 Essential (primary) hypertension; Z86.59 Personal history of other mental and behavioral disorders; Z86.19 Personal history of other infectious and parasitic diseases
CPT/HCPCS: 36415; 80053; 85027; 86593; 86780; C9803; J0735; U0003; U0005